=== PATIENT | male | born 1985 | race Caucasian/White ===

== ENCOUNTER 2022-04-23 08:18 | Outpatient (CLI) | payer OTHER, SELFPAY | END 2022-04-23 08:19 | disposition home or self-care (01) | LOC: INJ CL 08:23 | PROVIDERS: PCP Internal Medicine; Visit Provider Family Medicine | DX: M54.16 Radiculopathy, lumbar region (principal); M51.36 Other intervertebral disc degeneration, lumbar region | CPT/HCPCS: 62323; J0702; Q9966 ==

== ENCOUNTER 2022-08-27 08:49 | Outpatient (CLI) | payer OTHER, SELFPAY | END 2022-08-27 08:50 | disposition home or self-care (01) | LOC: RAD 08:50 | PROVIDERS: PCP Internal Medicine; Visit Provider Internal Medicine | DX: G47.30 Sleep apnea, unspecified (principal) | CPT/HCPCS: 93306 ==

== ENCOUNTER 2022-09-28 20:29 | Outpatient (CLI) | payer OTHER, SELFPAY | END 2022-09-28 20:30 | disposition home or self-care (01) | LOC: SLEEP 20:29 | PROVIDERS: PCP Internal Medicine; Visit Provider Internal Medicine | DX: G47.31 Primary central sleep apnea (principal) | CPT/HCPCS: 95810 ==

== ENCOUNTER 2022-10-25 20:54 | Outpatient (CLI) | payer OTHER, SELFPAY | END 2022-10-25 20:55 | disposition home or self-care (01) | LOC: SLEEP 20:55 | PROVIDERS: PCP Family Medicine; Visit Provider Internal Medicine | DX: G47.33 Obstructive sleep apnea (adult) (pediatric) (principal); G47.31 Primary central sleep apnea | CPT/HCPCS: 95811 ==

== ENCOUNTER 2024-01-01 16:45 | Emergency (ER) | payer BC, SELFPAY ==
[2024-01-01 16:49] VITALS: BP 124/71; PULSE 68; RESP 18; TEMP 36.1; O2SAT 97; BMI 19.9
--- NOTE | 2024-01-01 17:48 | ED.WOUNDLAC ---
HPI - Wound/Laceration General Date Seen: 01/01/24 Chief Complaint: Laceration/Wound Stated Complaint: finger laceration Time Seen by Provider: 01/01/24 16:47 Source: patient Mode of arrival: ambulatory Limitations: no limitations History of Present Illness HPI narrative: Patient is a 38-year-old male presenting to emergency department for laceration to his distal right thumb. He was using a mandoline slicer when he cut his finger. This happened shortly prior to coming to the emergency department. His last tetanus was 6-7 years ago. No other injuries noted. No other concerns noted at this time. Related Data Allergies Allergy/AdvReac Type Severity Reaction Status Date / Time No Known Drug Allergies Allergy Verified 01/01/24 16:49 Review of Systems Narrative: Pertinent systems reviewed and were negative unless stated in HPI PFSH PFSH Social History Smoking Status: Never smoker Do you use any of these nicotine containing products: None Second hand tobacco smoke exposure: No How often do you have a drink containing alcohol: never How often do you have six or more drinks on one occasion: Never AUDIT-C Alcohol total score: 0 Non-prescribed substance use: denies use service: No Exam Narrative: Exam Narrative: Const: Well-nourished, Well-developed, in no distress Eyes: PERRL, no conjunctival injection, and symmetrical lids HENT: Atraumatic external nose and ears. Moist mucous membranes. MSK:Extremities w/o deformity, Normal Active ROM Skin: Warm, Dry. Or 0.5 cm laceration distal right thumb going into nail bed Neuro: Normal Muscle tone, No focal neurological deficits. Psych: Awake, Alert, & Oriented x3. Appropriate mood and affect. Const: Vital Signs, click to edit/add: Vital Signs - 24 hr 01/01/24 16:49 Temperature 96.9 F L Pulse Rate [Pulse Oximeter] 68 Respiratory Rate 189 H Blood Pressure [Le ft Upper Arm] 124/71 Pulse Oximetry 97 Oxygen Delivery Me thod Room Air Course Vital Signs Vital signs: Initial Vital Signs Temperature 96.9 F L 01/01/24 16:49 Temperature Source Temporal Artery Scan 01/01/24 16:49 Pulse Rate 68 01/01/24 16:49 Pulse Rhythm Regular 01/01/24 16:49 Respiratory Rate 189 H 01/01/24 16:49 Blood Pressure 124/71 01/01/24 16:49 Blood Pressure Mean 88 01/01/24 16:49 Blood Pressure Position Supine 01/01/24 16:49 Pulse Oximetry 97 01/01/24 16:49 Oxygen Delivery Method Room Air 01/01/24 16:49 Vital Signs Temperature 96.9 F L 01/01/24 16:49 Pulse Rate 68 01/01/24 16:49 Respiratory Rate 189 H 01/01/24 16:49 Blood Pressure 124/71 01/01/24 16:49 Pulse Oximetry 97 01/01/24 16:49 Oxygen Delivery Method Room Air 01/01/24 16:49 Temperature 96.9 F L 01/01/24 16:49 Pulse Rate 68 01/01/24 16:49 Respiratory Rate 189 H 01/01/24 16:49 Blood Pressure 124/71 01/01/24 16:49 Pulse Oximetry 97 01/01/24 16:49 Oxygen Delivery Method Room Air 01/01/24 16:49 MDM - Wound/Laceration MDM Narrative Medical decision making narrative: Patient is a 38-year-old male presenting for laceration to his right thumb. No other injuries noted. He is otherwise doing well. Part of the nail was removed to get to the laceration. He tolerated the procedure well. He is otherwise doing well can be discharged home. Antibiotics are not necessary at this time. Tetanus is already up-to-date. Will be discharged. He is agreeable to this plan. Discharge Plan Discharge Clinical Impression: Laceration Condition: Stable Instructions: Finger Laceration (ED) Additional Instructions: Follow-up with your primary care provider or urgent care in the next 7 days to have the 3 sutures removed. For next 6 months, once sutures are removed, whenever you go outside put a dab of sunscreen over the laceration site to improve scar appearance. Topical antibiotics are not necessary at this time. Patient can shower but do not submerge the laceration until sutures are removed Follow Up/Referrals: Yasmin Yanez MD [Primary Care Provider] - Stand Alone [facility]: [facility] Info Instructions Procedures Laceration Right thumb: Name of person performing procedure: Ty Correa Site: hand (Thumb) Side (If applicable): right Size (cm): 0.5 Description: linear and clean Local Anesthetic: lidocaine 1% (Digital nerve block) Amount of anesthesia used (mL): 3 Skin layer closed with: nylon Size (cm): 4-0 Number of sutures: 3 Technique: simple, interrupted
[2024-01-01 18:04] VITALS: BP 124/71; PULSE 68; RESP 18; TEMP 36.1
== END 2024-01-01 18:07 | disposition home or self-care (01) ==
PROVIDERS: Emergency Provider Student in an Organized Health Care Education/Training Program; PCP Family Medicine
DX: S61.011A Laceration without foreign body of right thumb without damage to nail, initial encounter (principal); W26.9XXA Contact with unspecified sharp object(s), initial encounter
CPT/HCPCS: 12001; 99282; 99283